=== PATIENT | female | born 1985 ===

== ENCOUNTER 2017-01-15 10:21 | Emergency (ER) | payer MEDICAID ==
[~2017-01-15] VITALS: Ht 152.4 cm; Wt 53.0 kg
[2017-01-15 10:29] VITALS: Ht 152.4 cm; Wt 53.0 kg
[2017-01-15 11:42] LABS: ADD SCAN DIFF NO
[2017-01-15 11:45] LABS: BASOPHILS % 0.4 % (0.0-2.0); EOSINOPHILS # 0.1 10^3/ul (0.0-0.5); EOSINOPHILS % 0.7 % (0.0-7.0); HEMATOCRIT 39.1 % (37.0-47.0); HEMOGLOBIN 12.5 g/dl (12.0-16.0); LYMPHOCYTES % 28.4 % (15.0-51.0); MEAN CORPUSCULAR HEMOGLOBIN 28.1 pg (29.0-33.0); MEAN CORPUSCULAR VOLUME 87.9 fl (82.0-101.0); MONOCYTE # 0.4 10^3/ul (0.3-0.9); MONOCYTES % 6.4 % (0.0-11.0); NEUTROPHIL # 4.4 10^3/ul (1.6-7.5); NEUTROPHILS % 63.8 % (39.0-77.0); PLATELET COUNT 175 10^3/UL (140-415); RED BLOOD COUNT 4.45 10^6/ul (4.20-5.40); WHITE BLOOD COUNT 6.9 10^3/ul (4.8-10.8)
[2017-01-15 11:52] LABS: ADD UMIC YES; UR BILIRUBIN (Dip) 1+ (NEGATIVE); UR BLOOD (Dip) 3+ (NEGATIVE); UR COLOR RED (YELLOW); UR GLUCOSE (Dip) NEGATIVE (NEGATIVE); UR KETONES (Dip) NEGATIVE (NEGATIVE); UR LEUKOCYTE ESTERASE (Dip) 1+ (NEGATIVE); UR NITRITE (Dip) NEGATIVE (NEGATIVE); UR TOTAL PROTEIN (Dip) 2+ (NEGATIVE); UR UROBILINOGEN (Dip) 0.2 E.U./dL (0.1-1.0)
[2017-01-15 11:54] LABS: UR CLARITY BLOODY (CLEAR)
--- NOTE | 2017-01-15 12:05 | RADRPT ---
PROCEDURE: US Pelvis. CLINICAL INDICATION: vaginal bleeding TECHNIQUE: Multiple sonographic images of the pelvis were obtained utilizing a transabdominal and endovaginal technique. The images were reviewed on a PACS workstation. COMPARISON: None. FINDINGS: The uterus is normal in size and demonstrates a normal appearance of the myometrium. The uterus beau ures 8.8 x 4.6 x 5.1 cm. The endometrial stripe is heterogeneous in appearance and has the thickness of 5.4 mm. No intrauterine gestation is noted. The ovaries are normal in size and echogenicity. Normal Doppler flow is identified in both ovaries. The right ovary measures 3.4 x 2.0 x 2.4 cm. The left ovary measures 3.4 x 1.8 x 2.1 cm. No free fluid is present within the pelvis.. RPTAT: AA IMPRESSION: No intrauterine gestation visualized. Differential diagnosis includes early , missed or ectopic . Follow-up ultrasound and HCG levels is recommended. .Branden Solares MD, MD Date Time Electronically viewed and signed by .Branden Solares MD, on 01/15/2017 12:05 .S/
[2017-01-15 12:16] LABS: ICTOTEST NEGATIVE (NEGATIVE); UR BACTERIA FEW; UR SQUAMOUS EPITHELIAL CELL FEW; URINE RBCS >50 /HPF (0)
[2017-01-15] MEDS ORDERED: NITR-58 PO (13:04)
[2017-01-15] MEDS ORDERED: ACET325T33 PO (13:04)
--- NOTE | 2017-01-15 13:34 | ERD ---
ER Documentation Chief Complaint Date/Time DATE: 01/15/17 TIME: 13:30 Chief Complaint with spotting today HPI 31-year-old female patient with no significant past medical history is a presents to the ED complaining of vaginal bleeding that started yesterday. Reports that she is not sure of the date of her last menses. Denies any chest pain, shortness of breath, abdominal pain, nausea, vomiting, diarrhea. States that she had a normal bowel movement. 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 Denies any vaginal discharge, dysuria, urgency, frequency, flank pain. ROS All systems reviewed and are negative except as per history of present illness. Medications Home Meds Active Scripts Acetaminophen* (Tylenol*) 325 Mg Tablet, 1 TAB PO Q6 Y for PAIN AND OR ELEVATED TEMP, #20 TAB Prov:SANJANA BETANCUR PA-C 01/15/17 Nitrofurantoin Monohyd Macrocr* (Macrobid*) 100 Mg Capsr, 100 MG PO BID for 7 Days, CAP Prov:SANJANA BETANCUR PA-C 01/15/17 PMhx/Soc Medical and Surgical Hx: pt denies Medical Hx, pt denies Surgical Hx Hx Alcohol Use: No Hx Substance Use: No Hx Tobacco Use: No Smoking Status: Never smoker Physical Exam Vitals Vital Signs Date Time Temp Pulse Resp B/P Pulse Ox O2 Delivery O2 Flow Rate FiO2 01/15/17 10:29 98.1 74 18 120/64 99 Physical Exam Const: Nxq-wdr-zqswuzjwu, well-nourished. In no acute distress. Head: Atraumatic, normocephalic Eyes: Normal Conjunctiva without injection. No purulent discharge. ENT: Normal external ear, nose. Moist oropharynx without tonsillar exudates. Non -erythematous pharynx. Uvula midline. No drooling. No trismus. Neck: No cervical midline tenderness. Full range of motion. No meningismus. No cervical lymphadenopathy. No JVD. Resp: Clear to auscultation bilaterally. No wheezing, rhonchi, rales, or crackles. No accessory muscle use. No retractions. Cardio: Regular rate and rhythm. No murmurs, rubs or gallops. Abd: Soft, nontender, non distended. Normal bowel sounds. No palpable masses. No rebound tenderness. No guarding. Negative McBurney's point. Negative psoas sign. Negative obturator sign. Skin: No petechiae or rashes Back: No midline tenderness. No CVA tenderness. Ext: No cyanosis, or edema. Neur: Awake and alert. Normal gait. Normal coordination. Psych: Normal Mood and Affect Result Diagram: 01/15/17 1114 Results 24 hrs Laboratory Tests Test 01/15/17 11:04 01/15/17 11:14 Urine Color RED Urine Clarity BLOODY Urine pH 8.0 Urine Specific Alpha 1.020 Urine Ketones NEGATIVE Urine Nitrite NEGATIVE Urine Bilirubin 1+ Urine Ictotest NEGATIVE Urine Urobilinogen 0.2 E.U./dL Urine Leukocyte Esterase 1+ Urine Microscopic RBC >50/HPF Urine Microscopic WBC 2-5/HPF Urine Squamous Epithelial Cells FEW Urine Bacteria FEW Urine Hemoglobin 3+ Urine Glucose NEGATIVE% Urine Total Protein 2+ White Blood Count 6.910^3/ul Red Blood Count 4.4510^6/ul Hemoglobin 12.5g/dl Hematocrit 39.1% Mean Corpuscular Volume 87.9fl Mean Corpuscular Hemoglobin 28.1pg Mean Corpuscular Hemoglobin Concent 32.0g/dl Red Cell Distribution Width 13.0% Platelet Count 86758^3/UL Mean Platelet Volume 11.0fl Neutrophils % 63.8% Lymphocytes % 28.4% Monocytes % 6.4% Eosinophils % 0.7% Basophils % 0.4% Nucleated Red Blood Cells % 0.0/100WBC Neutrophils # 4.410^3/ul Lymphocytes # 2.010^3/ul Monocytes # 0.410^3/ul Eosinophils # 0.110^3/ul Basophils # 0.010^3/ul Nucleated Red Blood Cells # 0.010^3/ul Beta HCG, Quantitative 71.2mIU/ml Procedures/MDM 31-year-old female patient with no significant past medical history is a presents to the ED complaining of vaginal bleeding that started yesterday. Patient is afebrile and nontoxic-appearing. Patient has normal vital signs. An ultrasound, beta-hCG, CBC, type and RH, UA was ordered to evaluate patient. CBC: No evidence of severe infection or anemia Urine: No elevation in nitrites, 1+ leukocyte esterase, 3+ hematuria. Rh: O positive No indication for Rhogam at this time. beta Hc.2 PROCEDURE: US Pelvis. CLINICAL INDICATION: vaginal bleeding TECHNIQUE: Multiple sonographic images of the pelvis were obtained utilizing a transabdominal and endovaginal technique. The images were reviewed on a PACS workstation. COMPARISON: None. FINDINGS: The uterus is normal in size and demonstrates a normal appearance of the myometrium. The uterus measures 8.8 x 4.6 x 5.1 cm. The endometrial stripe is heterogeneous in appearance and has the thickness of 5.4 mm. No intrauterine gestation is noted. The ovaries are normal in size and echogenicity. Normal Doppler flow is identified in both ovaries. The right ovary measures 3.4 x 2.0 x 2.4 cm. The left ovary measures 3.4 x 1.8 x 2.1 cm. No free fluid is present within the pelvis.. RPTAT: AA IMPRESSION: No intrauterine gestation visualized. Differential diagnosis includes early , missed or ectopic . Follow-up ultrasound and HCG levels is recommended. Differentials include early , missed . Ectopic cannot be ruled out at this time as there is no intrauterine gestation visualized. Patient's bleeding symptoms have stabilized while in the department. Low suspicion for symptomatic anemia, ectopic , sepsis, PID, appendicitis, ovarian torsion, tubo-ovarian abscess, surgical abdomen, or other emergent conditions. Patient was educated that there is a risk for threatened . Patient to follow up with [facility]OG[facility] TE[facility]ER in 2 days for further evaluation and treatment to repeat beta Hcg and ultrasound. Patient is to return sooner to the ED for any worsening symptoms. Patient's questions were answered. Patient understood and agreed with discharge plan. Departure Diagnosis: Primary Impression: Vaginal bleeding in Trimester: first trimester Qualified Code: O46.91 - Vaginal bleeding in , first trimester Condition: Stable Patient Instructions: Vaginal Bleed in Referrals: COMMUNITY CLINICS YOU HAVE RECEIVED A MEDICAL SCREENING EXAM AND THE RESULTS INDICATE THAT YOU DO NOT HAVE A CONDITION THAT REQUIRES URGENT TREATMENT IN THE EMERGENCY DEPARTMENT. FURTHER EVALUATION AND TREATMENT OF YOUR CONDITION CAN WAIT UNTIL YOU ARE SEEN IN YOUR DOCTORS OFFICE WITHIN THE NEXT 1-2 DAYS. IT IS YOUR RESPONSIBILITY TO MAKE AN APPOINTMENT FOR FOLOW-UP CARE. IF YOU HAVE A PRIMARY DOCTOR --you should call your primary doctor and schedule an appointment IF YOU DO NOT HAVE A PRIMARY DOCTOR YOU CAN CALL OUR PHYSICIAN REFERRAL HOTLINE AT IF YOU CAN NOT AFFORD TO SEE A PHYSICIAN YOU CAN CHOSE FROM THE FOLLOWING [facility] CLINICS [facility] [address] [facility] [address] [facility]. [facility] [address] [facility] [phone] [facility]. [facility] [phone] [facility] [facility] [address] [facility] [facility] YOU HAVE RECEIVED A MEDICAL SCREENING EXAM AND THE RESULTS INDICATE THAT YOU DO NOT HAVE A CONDITION THAT REQUIRES URGENT TREATMENT IN THE EMERGENCY DEPARTMENT. FURTHER EVALUATION AND TREATMENT OF YOUR CONDITION CAN WAIT UNTIL YOU ARE SEEN IN YOUR DOCTORS OFFICE WITHIN THE NEXT 1-2 DAYS. IT IS YOUR RESPONSIBILITY TO MAKE AN APPOINTMENT FOR FOLOW-UP CARE. IF YOU HAVE A PRIMARY DOCTOR --you should call your primary doctor and schedule and appointment IF YOU DO NOT HAVE A PRIMARY DOCTOR YOU CAN CALL OUR PHYSICIAN REFERRAL HOTLINE AT . IF YOU CAN NOT AFFORD TO SEE A PHYSICIAN YOU CAN CHOSE FROM THE FOLLOWING [facility] INSTITUTIONS: [facility] [address] [place] [address] [facility] [address] [place] [address] [facility] [address] [place] [address] [employer] [address] [facility] [address] [place], [place] [phone] OFFICE FAX , AM[place] [address] [place] [address] [address]. CARBAJAL, BECKET [address] [place], [place] [phone] [address] TAO, [place] [address] [facility], [id number] [address] [address] MAURICE, [place] [address] [place], [place] [phone] [facility] [place] [address] [place], [place] [address] [address] [facility] [address] - STEPHANIE BELLO [address], [facility] [address] [address] SCHMID, MAMADOU [address] [facility] 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 SANJANA BETANCUR PA-C Jan 15, 2017 13:34
== END 2017-01-15 13:49 | disposition home or self-care (01) ==
LOC: FTE 10:21
DX: O20.9 Hemorrhage in early pregnancy, unspecified (principal); Z3A.00 Weeks of gestation of pregnancy not specified
CPT/HCPCS: 36415; 76801; 76817; 81001; 84702; 85025; 86900; 86901